=== PATIENT | female | born 1970 | race Caucasian/White ===

== ENCOUNTER 2018-06-09 06:00 | Day surgery (SDC) | payer OTHER ==
[~2018-06-09 06:00] MED LIST: SYNTHROID75 MCG PO
[2018-06-09] MEDS ORDERED: DOXYCYCLINE HY100 MG PO (11:19)
[2018-06-09] MEDS ORDERED: CODE1TAB37 PO (11:19)
== END 2018-06-09 16:00 | disposition home or self-care (01) ==
LOC: CIR.AMB 06:00
DX: D25.0 Submucous leiomyoma of uterus (principal); N84.0 Polyp of corpus uteri